=== PATIENT | male | born 1950 | race Caucasian/White ===

== ENCOUNTER → 2018-08-20 | Outpatient (CLI) | payer OTHER | END | disposition home or self-care (01) | LOC: TOM 08:34 | DX: G45.8 Other transient cerebral ischemic attacks and related syndromes (principal) ==

== ENCOUNTER 2021-05-16 09:48 | Outpatient (CLI) | payer OTHER ==
[~2021-05-16 09:48] MED LIST: GABAPENTIN300 M2 PO; INTESTINEX680 M1 PO; LEVSIN/SL0.125 MG PO; RESTORIL15 M1; VASOTEC5 MG
== END 2021-05-16 09:49 | disposition home or self-care (01) ==
LOC: NUCLEAR 09:48
PROVIDERS: ATTEND Internal Medicine Cardiovascular Disease
DX: G45.8 Other transient cerebral ischemic attacks and related syndromes (principal); I73.89 Other specified peripheral vascular diseases

== ENCOUNTER → 2021-05-17 07:53 | Outpatient (CLI) | payer OTHER | END | disposition home or self-care (01) | LOC: NUCLEAR 07:53 | PROVIDERS: ATTEND Internal Medicine Cardiovascular Disease | DX: G45.8 Other transient cerebral ischemic attacks and related syndromes (principal); I73.9 Peripheral vascular disease, unspecified ==

== ENCOUNTER 2021-05-24 07:13 | Outpatient (CLI) | payer OTHER | END 2021-05-24 07:20 | disposition home or self-care (01) | LOC: RAD 07:13 | PROVIDERS: ATTEND Internal Medicine Cardiovascular Disease | DX: I10 Essential (primary) hypertension (principal) ==

== ENCOUNTER 2021-10-30 07:24 | Emergency (ER) | payer OTHER ==
[~2021-10-30] VITALS: Ht 185.4 cm; Wt 84.8 kg
[2021-10-30] MEDS ORDERED: ADULT LOW DOSE81 M1 PO (07:35)
[2021-10-30] MEDS ORDERED: ZOCOR20 MG PO (07:35)
[2021-10-30] MEDS ORDERED: BUSPIRONE HCL7.5 MG PO (07:36)
[2021-10-30] MEDS ORDERED: AMOX-CLAV 875-1 EACH PO (08:28)
[2021-10-30] MEDS ORDERED: KETO10TA2 PO (08:28)
== END 2021-10-30 09:20 | disposition home or self-care (01) ==
LOC: ER 07:24
DX: K08.89 Other specified disorders of teeth and supporting structures (principal)

== ENCOUNTER → 2022-04-12 07:30 | Outpatient (CLI) | payer OTHER ==
[~2022-04-12 07:30] MED LIST changes: +ADULT LOW DOSE81 M1 PO; +AMOX-CLAV 875-1 EACH PO; +BUSPIRONE HCL7.5 MG PO; +KETO10TA2 PO; +ZOCOR20 MG PO
== END | disposition home or self-care (01) ==
LOC: NUCLEAR 07:00
PROVIDERS: ATTEND Internal Medicine Hematology & Oncology
DX: C43.51 Malignant melanoma of anal skin (principal)
CPT/HCPCS: 78816; A9552

== ENCOUNTER 2022-05-25 07:03 | Outpatient (CLI) | payer OTHER | END 2022-05-25 07:04 | disposition home or self-care (01) | LOC: LAB 07:03 | PROVIDERS: ATTEND Radiology Diagnostic Radiology | DX: C43.51 Malignant melanoma of anal skin (principal) ==

== ENCOUNTER 2022-12-10 07:55 | Outpatient (CLI) | payer OTHER | END 2022-12-10 07:56 | disposition home or self-care (01) | LOC: NUCLEAR 07:55 | PROVIDERS: ATTEND Internal Medicine | DX: I70.71 Atherosclerosis of other type of bypass graft(s) of the extremities with intermittent claudication (principal); I73.9 Peripheral vascular disease, unspecified ==

== ENCOUNTER 2023-08-19 08:07 | Outpatient (CLI) | payer OTHER | END 2023-08-19 08:14 | disposition home or self-care (01) | LOC: RAD 08:07 | PROVIDERS: ATTEND Internal Medicine | DX: R07.9 Chest pain, unspecified (principal); Z88.5 Allergy status to narcotic agent ==

== ENCOUNTER 2023-10-25 06:30 | Day surgery (SDC) | payer OTHER ==
[2023-10-22 10:41] LABS: PH,URINE 6.5 (5.0-8.0); URINE APPEARANCE Clear; URINE BILIRRUBIN Negative (NEGATIVE); URINE BLOOD Negative; URINE COLOR Dark Yellow; URINE GLUCOSE Negative (NEGATIVE); URINE LEUKOCYTE Small; URINE NITRATE Positive; URINE PROTEIN Trace (NEGATIVE)
[2023-10-22 10:45] LABS: URINE EPITHELIAL CELLS 17.7 uL (0.0-38.8); URINE RBC 13.2 uL (0.0-20.8); URINE WBC 325.2 uL (0.0-23.2)
[2023-10-22 10:52] LABS: URINE BACTERIA > 9821.5 uL (0.0-1933)
[2023-10-22 12:03] LABS: URINE EPITHELIAL CELLS 0-4 /HPF
[2023-10-25 06:26] LABS: HEMATOCRIT 38.1 % (39.0-48.0); MEAN CELL VOLUME 92.6 fL (80.0-100.00); MEAN CORPUSCULAR HEMOGLOBIN 31.6 pg (27.00-32.0); MEAN CORPUSCULAR HGB CONC 34.1 g/dl (32.0-36.0); RED BLOOD COUNT 4.12 M/uL (4.00-6.00); RED CELL DISTRIBUTION WIDTH 16.7 % (11.5-14.5)
[2023-10-25 06:49] LABS: INR 1.01; PROTHROMBIN TIME 10.6 SECONDS (9.0-11.5)
[2023-10-25 06:56] LABS: ALBUMIN 3.6 gm/dL (3.4-5.0); BILIRUBIN TOTAL 0.37 mg/dL (0.3-1.2); CALCIUM 8.7 mg/dL (8.5-10.1); CREATININE SERUM 1.1 mg/dL (0.70-1.30); GFR 65.62; POTASSIUM 4.69 mEq/L (3.5-5.1); TOTAL PROTEIN 7.6 gm/dL (6.4-8.2)
[2023-10-25 07:19] LABS: PLATELET COUNT 120 K/uL (150-450)
== END 2023-10-25 16:40 | disposition home or self-care (01) ==
LOC: CIR.AMB 06:30
PROVIDERS: ATTEND Surgery
DX: K80.10 Calculus of gallbladder with chronic cholecystitis without obstruction (principal); Z88.6 Allergy status to analgesic agent; Z20.822 Contact with and (suspected) exposure to COVID-19

== ENCOUNTER 2024-06-15 02:21 | Inpatient (IN) | payer OTHER ==
[~2024-06-15] VITALS: Ht 182.9 cm; Wt 83.9 kg
[~2024-06-15 02:21] MED LIST changes: +ASPIR 8181 MG; +ASPIRIN81 MG PO; +CARAFATE1 GM PO; +CLONAZEPAM2 MG PO; +DIAZEPAM5 MG PO; +DICLOFENAC SODI50 MG PO; +ENALAPRIL MALE2.5 MG; +ENALAPRIL MALEA20 MG; +ORPH100T PO; +PROTONIX40 MG PO; +RESTORIL15 M1 PO; +SIMVASTATIN20 MG; +SIMVASTATIN5 MG; +TENAZEPAM PO; +ZANTAC150 M3 PO; +ZOLOFT100 MG; +ZOLOFT25 MG
--- NOTE | 2024-06-15 02:26 | NUR ---
SE RECIBE PTE ALERTA Y ORIENTADO EN AMBULANCIA LE CUAL REFIERE VENIR POR DOLOR CORPORAL, VOMITOS, NAUSEAS Y FIEBRE. PTE NO REFIERE VOMITOS EN EL [place]ARY[place] DE [place]. SE MIDEN S/V A PTE Y SE UBICA.
[2024-06-15] MEDS ORDERED: FAMOTIDINE/PF 20 MG/2 ML VIAL IV PUSH STA (03:11)
[2024-06-15] MEDS ORDERED: PROMETHAZINE HCL 50 MG/ML AMPUL IM STA (03:11)
[2024-06-15] MEDS ORDERED: KETOROLAC TROMETHAMINE 30 MG VIAL IV STA (03:11)
[2024-06-15] MEDS ORDERED: 0.9 % SODIUM CHLORIDE 1,000 ML IV ONE (03:15)
[2024-06-15] MEDS ORDERED: PROMETHAZINE HCL 50 MG/ML AMPUL IM ONE (03:17)
[2024-06-15] MEDS ORDERED: FAMOTIDINE/PF 20 MG/2 ML VIAL ONE ×2 (03:17→10:05)
[2024-06-15] MEDS ORDERED: KETOROLAC TROMETHAMINE 30 MG VIAL ONE (03:17)
--- NOTE | 2024-06-15 03:21 | NUR ---
SE EDUCA A PTE SOBRE TX MEDICO, SE SWAPNIL MUESTRAS DE LABORATORIO UTILIZANDO MEDIDAS ASEPTICAS. SE COLOCA H/L CALVIN DE EDEMA. SE ADMINISTRAN MEDICAMENTOS LOS CUALES [place]OL[place]A. SE NOTIFICAN ABGS Y CT PENDIENTE A REALIZAR.
[2024-06-15 04:07] LABS: ABG PH 7.454 (7.35-7.45); ABG PO2 70.6 mmHg (80-100); ABG pCO2 32.1 mmHg (35-45); SaO2 94.8 %; Tco2 22.9 mmol/l; allen test SATISFACTORY; o2 21 %; puncture site RADIAL LEFT
[2024-06-15 04:10] LABS: PH,URINE 5.5 (5.0-8.0); URINE APPEARANCE Cloudy; URINE BILIRRUBIN Negative (NEGATIVE); URINE BLOOD Large; URINE COLOR Yellow; URINE GLUCOSE Negative (NEGATIVE); URINE KETONE Negative (NEGATIVE); URINE LEUKOCYTE Moderate; URINE NITRATE Positive; URINE PROTEIN 30 (NEGATIVE)
[2024-06-15 04:13] LABS: URINE BACTERIA 1256.1 uL (0.0-1933); URINE EPITHELIAL CELLS 34.6 uL (0.0-38.8); URINE RBC 34.5 uL (0.0-20.8); URINE WBC 485.3 uL (0.0-23.2)
[2024-06-15 04:17] LABS: INR 1.18; PARTIAL THROMBOPLASTIN TIME 35.6 SECONDS (22.0-34.0); PROTHROMBIN TIME 12.2 SECONDS (9.0-11.5)
[2024-06-15 04:18] LABS: URINE CAST 0.61 uL (0.0-1.40)
[2024-06-15 04:22] LABS: ALBUMIN 3.2 gm/dL (3.4-5.0); BILIRUBIN TOTAL 1.66 mg/dL (0.3-1.2); BILIRUBIN,CONJUGATED 0.55 mg/dL (0.0-0.2); BILIRUBIN,UNCONJUGATED 1.11 mg/dL (0.0-0.6); CALCIUM 8.8 mg/dL (8.5-10.1); CREATININE SERUM 1.96 mg/dL (0.70-1.30); GFR 33.69; GLOBULINA 3.8 G/DL (2.4-3.5); POTASSIUM 4.16 mEq/L (3.5-5.1)
[2024-06-15 04:28] LABS: HEMATOCRIT 33.2 % (39.0-48.0); HEMOGLOBIN 11.3 g/dL (13-16.00); MEAN CELL VOLUME 91.4 fL (80.0-100.00); MEAN CORPUSCULAR HEMOGLOBIN 31.2 pg (27.00-32.0); MEAN CORPUSCULAR HGB CONC 34.1 g/dl (32.0-36.0); RED BLOOD COUNT 3.63 M/uL (4.00-6.00); RED CELL DISTRIBUTION WIDTH 16.8 % (11.5-14.5)
[2024-06-15 04:39] LABS: PLATELET COUNT 89 K/uL (150-450)
[2024-06-15] MEDS ORDERED: CEFTRIAXONE SODIUM 1,000 MG VIAL IV STA (05:07)
[2024-06-15] MEDS ORDERED: CEFTRIAXONE SODIUM 1,000 MG VIAL ONE (05:13)
--- NOTE | 2024-06-15 05:27 | NUR ---
SE SWAPNIL MUESTRAS DE LABORATORIO NUEVAS TAMEKA ORDEN MEDICA. SE ADMINISTRA MEDICAMENTO IV EL CUAL PTE TOLERA. SE BARTOLO ENVASE DE UC A PTE Y SE ORIENTA.
[2024-06-15] MEDS ORDERED: CEFTRIAXONE SODIUM 2,000 MG in DEXTROSE 5 % IN WATER 100 ML IV SCH (09:13)
[2024-06-15] MEDS ORDERED: FAMOTIDINE/PF 20 MG in 0.9 % SODIUM CHLORIDE 8 ML IV PUSH SCH (09:14)
[2024-06-15] MEDS ORDERED: ACETAMINOPHEN 500 MG GEL..CAP PO PRN (09:15)
[2024-06-15] MEDS ORDERED: ENALAPRILAT DIHYDRATE 1.25 MG/ML VIAL IV PRN (09:15)
[2024-06-15] MEDS ORDERED: 0.9 % SODIUM CHLORIDE 1,000 ML IV SCH (09:15)
[2024-06-15] MEDS ORDERED: MEPERIDINE HCL/PF 25 MG/ML VIAL IV PRN (09:15)
[2024-06-15] MEDS ORDERED: ENOXAPARIN SODIUM 40 MG/0.4 ML SYRINGE SUBCUTANEO SCH (09:17)
[2024-06-15] MEDS ORDERED: SERTRALINE HCL 100 MG TABLET PO SCH (09:18)
[2024-06-15] MEDS ORDERED: ENOXAPARIN SODIUM 40 MG/0.4 ML SYRINGE SUBCUTANEO ONE (10:05)
[2024-06-15] MEDS ORDERED: CEFTRIAXONE SODIUM 2,000 MG VIAL ONE (10:05)
[2024-06-15] MEDS ORDERED: ACETAMINOPHEN 500 MG GEL..CAP PO ONE (15:11)
[2024-06-15] MEDS ORDERED: SIMVASTATIN 20 MG TABLET PO SCH (17:00)
[2024-06-15] MEDS ORDERED: TEMAZEPAM 15 MG CAPSULE PO SCH (21:00)
[2024-06-16 06:35] LABS: HEMATOCRIT 31.4 % (39.0-48.0); HEMOGLOBIN 10.7 g/dL (13-16.00); MEAN CELL VOLUME 93.4 fL (80.0-100.00); MEAN CORPUSCULAR HEMOGLOBIN 31.7 pg (27.00-32.0); RED BLOOD COUNT 3.37 M/uL (4.00-6.00); RED CELL DISTRIBUTION WIDTH 16.3 % (11.5-14.5)
[2024-06-16 07:18] LABS: ALBUMIN 2.7 gm/dL (3.4-5.0); BILIRUBIN TOTAL 1.27 mg/dL (0.3-1.2); CHOL HDL RATIO 2.6 (0-5.0); CREATININE SERUM 1.8 mg/dL (0.70-1.30); GFR 37.17; GLOBULINA 3.2 G/DL (2.4-3.5); MAGNESIUM 1.9 mg/dL (1.8-2.4); PHOSPHOROUS 3.1 mg/dL (2.5-4.9); POTASSIUM 3.98 mEq/L (3.5-5.1); PROSTATIC SPECIFIC ANTIGEN 2.61 NG/ML (0.010-4.00); TOTAL PROTEIN 5.9 gm/dL (6.4-8.2)
[2024-06-16 07:26] LABS: C-REACTIVE PROTEIN 14.1 MG/DL (0.00-0.29)
[2024-06-16 07:38] LABS: PLATELET COUNT 82 K/uL (150-450)
[2024-06-16 07:39] LABS: MANUAL PLATELET COUNT 186
[2024-06-16] MEDS ORDERED: VANCOMYCIN HCL 1,000 MG VIAL IV NR (16:00)
[2024-06-16] MEDS ORDERED: IOVERSOL 320 MG/ML - 50 ML VIAL IV ONE (18:43)
[2024-06-16] MEDS ORDERED: SODIUM CHLORIDE 0.45 % 1,000 ML IV SCH (18:45)
[2024-06-17 05:48] LABS: HEMATOCRIT 31.2 % (39.0-48.0); HEMOGLOBIN 10.6 g/dL (13-16.00); MEAN CELL VOLUME 92.3 fL (80.0-100.00); MEAN CORPUSCULAR HEMOGLOBIN 31.4 pg (27.00-32.0); RED BLOOD COUNT 3.38 M/uL (4.00-6.00); RED CELL DISTRIBUTION WIDTH 16.2 % (11.5-14.5)
[2024-06-17 06:01] LABS: ALBUMIN 2.5 gm/dL (3.4-5.0); BILIRUBIN TOTAL 1.01 mg/dL (0.3-1.2); CALCIUM 7.9 mg/dL (8.5-10.1); CREATININE SERUM 1.03 mg/dL (0.70-1.30); GFR 70.79; GLOBULINA 3.1 G/DL (2.4-3.5); MAGNESIUM 1.9 mg/dL (1.8-2.4); PHOSPHOROUS 2.6 mg/dL (2.5-4.9); POTASSIUM 3.98 mEq/L (3.5-5.1); TOTAL PROTEIN 5.6 gm/dL (6.4-8.2)
[2024-06-17 06:47] LABS: C-REACTIVE PROTEIN 11.9 MG/DL (0.00-0.29)
[2024-06-17 07:20] LABS: PLATELET COUNT 81 K/uL (150-450)
[2024-06-17] MEDS ORDERED: PHENAZOPYRIDINE HCL 100 MG TABLET PO SCH (09:00)
[2024-06-17] MEDS ORDERED: FAMOTIDINE/PF 20 MG in 0.9 % SODIUM CHLORIDE 8 ML IV PUSH SCH (09:00)
[2024-06-18 06:27] LABS: HEMATOCRIT 29.6 % (39.0-48.0); HEMOGLOBIN 10.5 g/dL (13-16.00); MEAN CELL VOLUME 90.6 fL (80.0-100.00); MEAN CORPUSCULAR HEMOGLOBIN 32.2 pg (27.00-32.0); MEAN CORPUSCULAR HGB CONC 35.6 g/dl (32.0-36.0); RED BLOOD COUNT 3.26 M/uL (4.00-6.00); RED CELL DISTRIBUTION WIDTH 16.2 % (11.5-14.5)
[2024-06-18 06:56] LABS: ALBUMIN 2.5 gm/dL (3.4-5.0); BILIRUBIN TOTAL 0.87 mg/dL (0.3-1.2); CALCIUM 7.7 mg/dL (8.5-10.1); CREATININE SERUM 0.8 mg/dL (0.70-1.30); GFR 94.76; GLOBULINA 3.2 G/DL (2.4-3.5); MAGNESIUM 1.7 mg/dL (1.8-2.4); PHOSPHOROUS 2.1 mg/dL (2.5-4.9); POTASSIUM 3.53 mEq/L (3.5-5.1); TOTAL PROTEIN 5.7 gm/dL (6.4-8.2)
[2024-06-18 07:14] LABS: PLATELET COUNT 86 K/uL (150-450)
[2024-06-18 08:14] LABS: ABG PH 7.451 (7.35-7.45); ABG PO2 66.6 mmHg (80-100); ABG pCO2 33.5 mmHg (35-45); BASE EXCESS -0.4 mmol/l; BICARBONATE 22.8 mmol/l (23-25); SaO2 93.9 %; Tco2 23.8 mmol/l
[2024-06-18] MEDS ORDERED: MAGNESIUM SULFATE/D5W 100 ML IV ONE (08:15)
[2024-06-18] MEDS ORDERED: FAMOTIDINE/PF 20 MG/2 ML VIAL ONE ×2 (08:27→19:51)
[2024-06-18 09:09] LABS: allen test SATISFACTORY; o2 21 %; puncture site RADIAL LEFT
[2024-06-18] MEDS ORDERED: MAGNESIUM SULFATE/D5W 1GM/100ML PIGGYBAG IV ONE (10:47)
[2024-06-18] MEDS ORDERED: POTASSIUM PHOS,M-BASIC-D-BASIC 15 MM in 0.9 % SODIUM CHLORIDE 250 ML IV NR (12:00)
[2024-06-18] MEDS ORDERED: POTASSIUM PHOS,M-BASIC-D-BASIC 3 MM/ML VIAL IV SCH (13:00)
[2024-06-18] MEDS ORDERED: VITAMIN B COMPLEX 1 EACH PO SCH (17:00)
[2024-06-18] MEDS ORDERED: Cyanocobalamin/Mecobalamin 1 TAB.SL SL SCH (17:00)
[2024-06-18] MEDS ORDERED: SOD FERRIC GLUC COMPLX/SUCROSE 62.5 MG in 0.9 % SODIUM CHLORIDE 50 ML IV SCH (17:00)
[2024-06-18] MEDS ORDERED: FAMOTIDINE/PF 20 MG in 0.9 % SODIUM CHLORIDE 8 ML IV PUSH SCH (21:00)
[2024-06-19 05:46] LABS: ALBUMIN 2.4 gm/dL (3.4-5.0); BILIRUBIN TOTAL 0.79 mg/dL (0.3-1.2); CALCIUM 7.7 mg/dL (8.5-10.1); CREATININE SERUM 0.79 mg/dL (0.70-1.30); GFR 96.14; GLOBULINA 3.3 G/DL (2.4-3.5); MAGNESIUM 1.7 mg/dL (1.8-2.4); PHOSPHOROUS 2.8 mg/dL (2.5-4.9); POTASSIUM 4.01 mEq/L (3.5-5.1); TOTAL PROTEIN 5.7 gm/dL (6.4-8.2)
[2024-06-19 06:59] LABS: HEMATOCRIT 29.7 % (39.0-48.0); HEMOGLOBIN 10.3 g/dL (13-16.00); MEAN CELL VOLUME 91.6 fL (80.0-100.00); MEAN CORPUSCULAR HEMOGLOBIN 31.9 pg (27.00-32.0); MEAN CORPUSCULAR HGB CONC 34.8 g/dl (32.0-36.0); RED BLOOD COUNT 3.25 M/uL (4.00-6.00); RED CELL DISTRIBUTION WIDTH 15.7 % (11.5-14.5)
[2024-06-19 07:59] LABS: PLATELET COUNT 93 K/uL (150-450)
[2024-06-19] MEDS ORDERED: CEFDINIR300 MG PO (15:45)
== END 2024-06-19 15:25 | disposition left against medical advice (07) | DRG 660 ==
LOC: ER → SEC-K 09:50 → MEDI 09:50 → MEDJ 13:28 → SEC-K 13:56 → MEDI 14:10
PROVIDERS: General Practice; Internal Medicine; Internal Medicine Infectious Disease; Urology; ADMIT Internal Medicine; ATTEND Internal Medicine
PROC: BW21ZZZ Computerized Tomography (CT Scan) of Abdomen and Pelvis (ICD-10-PCS; 2024-06-15)
PROC: 0T778DZ Dilation of Left Ureter with Intraluminal Device, Via Natural or Artificial Opening Endoscopic (ICD-10-PCS; principal; 2024-06-16 19:00)
PROC: BB24YZZ Computerized Tomography (CT Scan) of Bilateral Lungs using Other Contrast (ICD-10-PCS; 2024-06-18)
DX: N20.1 Calculus of ureter (principal); J90 Pleural effusion, not elsewhere classified; N10 Acute pyelonephritis; N17.9 Acute kidney failure, unspecified; N39.0 Urinary tract infection, site not specified; R09.02 Hypoxemia; I12.9 Hypertensive chronic kidney disease with stage 1 through stage 4 chronic kidney disease, or unspecified chronic kidney disease; N18.9 Chronic kidney disease, unspecified

== ENCOUNTER → 2024-08-10 07:17 | Outpatient (CLI) | payer OTHER ==
[~2024-08-10 07:17] MED LIST changes: +CEFDINIR300 MG PO
== END | disposition home or self-care (01) ==
LOC: EKG 07:17 → LAB 07:17
PROVIDERS: ATTEND Urology
DX: C67.9 Malignant neoplasm of bladder, unspecified (principal)

== ENCOUNTER 2024-08-10 08:22 | Outpatient (CLI) | payer OTHER | END 2024-08-10 08:33 | disposition home or self-care (01) | LOC: RAD 08:22 | PROVIDERS: ATTEND Urology | DX: C67.9 Malignant neoplasm of bladder, unspecified (principal) ==

== ENCOUNTER 2024-09-07 08:12 | Outpatient (CLI) | payer OTHER | END 2024-09-07 08:16 | disposition home or self-care (01) | LOC: RAD 08:12 | PROVIDERS: ATTEND Urology | DX: N20.0 Calculus of kidney (principal) ==

== ENCOUNTER 2024-10-08 07:48 | Outpatient (CLI) | payer OTHER ==
[~2024-10-08 07:48] MED LIST changes: +LINEZOLID600 MG PO
== END 2024-10-08 07:50 | disposition home or self-care (01) ==
LOC: RAD 07:48
PROVIDERS: ATTEND Urology
DX: N20.0 Calculus of kidney (principal)